=== PATIENT | female | born 1965 | race Two or more races ===

== ENCOUNTER 2020-03-27 08:31 | Day surgery (SDC) | payer MEDICAID ==
--- NOTE | 2020-03-23 15:30 | Pre-op HX & Phy Repo 2 SIG ---
DATE OF ADMISSION: 03/27/2020 Scheduled for outpatient surgery on March 27, 2020. HISTORY OF PRESENT ILLNESS: The patient is a 54-year-old female in overall stable health, who had recent breast imaging studies revealing in the left breast a 5 cm area of suspicious microcalcifications in the upper outer quadrant. 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 She has no prior history of breast disease and no family history of breast cancer. MEDICATIONS: Metformin. ALLERGIES: None. OPERATIONS: None. REVIEW OF SYSTEMS: 4, para 4. Last menstrual period 1 year ago. PHYSICAL EXAMINATION: VITAL SIGNS: The patient is with stable vital signs, 135 pounds. HEENT: Within normal limits. LUNGS: Clear. HEART: Regular rhythm. BREASTS: Moderate in size and ptotic. There is no palpable mass in either breast. No primary or secondary sign of tumor. No axillary or supraclavicular lymphadenopathy. ABDOMEN: Soft. PELVIC AND RECTAL: Per primary care. EXTREMITIES: Without edema. NEUROLOGIC: Physiologic. IMPRESSION: Ductal carcinoma in situ, left breast, upper outer quadrant, 5 cm area. PLAN: Left breast partial mastectomy with preoperative needle localization. DISCUSSION: I have had a full discussion with the patient regarding the nature of her condition, the need for surgery, indications, alternative options, and risks including bleeding, infection, scarring, distortion of the breast or nipple, need for additional treatments including possible additional surgery, radiation therapy, hormonal blockade or other treatments based on final pathology. The patient understands and agrees to proceed. Ryan Bleivns M.D. DR: AYAN JOB#: [id number] CC:
--- NOTE | 2020-03-24 12:14 | NUR ---
[employer] translation services used to obtained medical history with robotic weld technician Jahaira ID#[id number].
[~2020-03-27] VITALS: Ht 124.5 cm; Wt 61.2 kg
[2020-03-27] VITALS (10 sets, daily range): BP systolic 85–124; BP diastolic 48–74
[~2020-03-27 08:31] MED LIST: Bacitracin 50000 Units Vial ONE; METFORMIN HCL500 M1 ORAL
[2020-03-27] MEDS ORDERED: Lidocaine 1% MPF 10mg/ml 5ml ONE (08:34)
[2020-03-27] MEDS ORDERED: Ketorolac 30mg Inj ONE (08:34)
[2020-03-27] MEDS ORDERED: Midazolam 2mg/2ml Inj ONE (08:42)
[2020-03-27] MEDS ORDERED: fentaNYL 100 mcg/2 mL IV ONE (08:43)
--- NOTE | 2020-03-27 09:15 | Pre-Procedure Note/Attestation ---
Pre-Procedure Note/Attestation Complete Prior to Procedure Planned Procedure: left Procedure Narrative: left breast partial mastectomy with pre-operative needle localization Indications for Procedure Pre-Operative Diagnosis: Ductal Carcinoma in situ left breast Attestation I attest that I discussed the nature of the procedure; its benefits; risks and complications; and alternatives (and the risks and benefits of such alternatives), prior to the procedure, with the patient (or the patient's legal sales representative jewelry). I attest that, if there was a reasonable possibility of needing a blood transfusion, the patient (or the patient's legal sales representative jewelry) was given the [facility] standardized written summary, pursuant to the [place] Blood Safety Act ([place] Health and Safety Code # 1645, as amended). I attest that I re-evaluated the patient just prior to the surgery and that there has been no change in the patient's H&P, except as documented below: none Ryan Blevins MD Mar 27, 2020 09:15
[2020-03-27 09:17] LABS: BASOPHILS % (AUTO) 0.9 % (0.0-2.0); EOSINOPHILS % (AUTO) 5.2 % (0.0-3.0); HEMOGLOBIN 15.1 G/DL (12.0-16.0); LYMPHOCYTES % (AUTO) 19.5 % (20.0-45.0); MEAN CORPUSCULAR VOLUME 87 FL (80-99); MONOCYTES % (AUTO) 6.9 % (1.0-10.0); NEUTROPHILS % (AUTO) 67.4 % (45.0-75.0); PLATELET COUNT 129 K/UL (150-450); RED BLOOD COUNT 5.42 M/UL (4.20-5.40); RED CELL DISTRIBUTION WIDTH 14.4 % (11.6-14.8)
[2020-03-27] MEDS ORDERED: NS Irrig 1000ml IRRIG ONE ×2 (09:18→09:52)
[2020-03-27 09:27] LABS: INR 0.9 (0.9-1.1)
[2020-03-27] MEDS ORDERED: NS Irrig 1000ml ONE (09:30)
[2020-03-27] MEDS ORDERED: LR 1000ml ONE (09:30)
[2020-03-27] MEDS ORDERED: Insulin Human Regular 100units/ml 3ml SUBQ ONE ×2 (09:30→11:15)
[2020-03-27] MEDS ORDERED: Sterile Water Irrig 1000ml IRRIG ONE (09:30)
[2020-03-27 09:41] LABS: ANION GAP 8 mmol/L (5-15); BLOOD UREA NITROGEN 20 mg/dL (7-18); CALCIUM 9.1 MG/DL (8.5-10.1); CARBON DIOXIDE 24 MMOL/L (21-32); CHLORIDE 102 MMOL/L (98-107); CREATININE 0.8 MG/DL (0.55-1.30); POTASSIUM 4.4 MMOL/L (3.5-5.1); SODIUM 134 MMOL/L (136-145)
--- NOTE | 2020-03-27 10:26 | Anethesia Preoperative Eval ---
Anesthesia Pre-op PMH/ROS General Date of Evaluation: Mar 27, 2020 Time of Evaluation: 09:00 Anesthesiologist: Emmie ASA Score: ASA 3 Mallampati Score Class I : Soft palate, uvula, fauces, pillars visible Class II: Soft palate, uvula, fauces visible Class III: Soft palate, base of uvula visible Class IV: Only hard plate visible Mallampati Classification: Class II Surgeon: Gen Diagnosis: L breast CA Surgical Procedure: L partial mastectomy Anesthesia History: none Family History: no anesthesia problems Allergies: Coded Allergies: No Known Allergies (Unverified , 03/24/20) Medications: see eMAR Patient NPO?: Yes Past Medical History Cardiovascular: Denies: HTN, CAD, ID, valve dz, arrhythmia, other Pulmonary: Denies: asthma, COPD, JAMIL, other Gastrointestinal/Genitourinary: Reports: GERD; Denies: CRI, ESRD, other Neurologic/Psychiatric: Reports: depression/anxiety; Denies: dementia, CVA, TIA, other Endocrine: Reports: DM - on metformin, not controled BS at admission 377 6 units of reg. insulin given preoperatively; Denies: hypothyroidism, steroids, other HEENT: Denies: cataract (L), cataract (R), glaucoma, PALA (L), PALA (R), other Hematology/Immune: Denies: anemia, DVT, bleeding disorder, other Musculoskeletal/Integumentary: Denies: OA, RA, DJD, DDD, edema, other PMH Narrative: as above PSxH Narrative: see H&P Anesthesia Pre-op Phys. Exam Physician Exam Last Vital Signs Date Time Temp Pulse Resp B/P (MAP) Pulse Ox O2 Delivery O2 Flow Rate FiO2 03/27/20 08:55 Room Air 03/27/20 08:54 98.2 70 16 117/72 100 Constitutional: NAD Neurologic: CN 2-12 intact Cardiovascular: RRR, no M/R/G Respiratory: CTA Gastrointestinal: S/NT/ND Airway Exam Mallampati Score: Class II MO: full Neck: short ROM: limited Teeth: missing Dentures: no upper, no lower Anesthesia Pre-op A/P Labs Hematology Test 03/27/20 09:00 White Blood Count 8.0 K/UL (4.8-10.8) Red Blood Count 5.42 M/UL (4.20-5.40) H Hemoglobin 15.1 G/DL (12.0-16.0) Hematocrit 47.0 % (37.0-47.0) Mean Corpuscular Volume 87 FL (80-99) Mean Corpuscular Hemoglobin 27.8 PG (27.0-31.0) Mean Corpuscular Hemoglobin Concent 32.1 G/DL (32.0-36.0) Red Cell Distribution Width 14.4 % (11.6-14.8) Platelet Count 129 K/UL (150-450) L Mean Platelet Volume 8.7 FL (6.5-10.1) Neutrophils (%) (Auto) 67.4 % (45.0-75.0) Lymphocytes (%) (Auto) 19.5 % (20.0-45.0) L Monocytes (%) (Auto) 6.9 % (1.0-10.0) Eosinophils (%) (Auto) 5.2 % (0.0-3.0) H Basophils (%) (Auto) 0.9 % (0.0-2.0) Coagulation Test 03/27/20 09:00 Prothrombin Time 10.4 SEC (9.30-11.50) Prothromb Time International Ratio 0.9 (0.9-1.1) Activated Partial Thromboplast Time 25 SEC (23-33) Chemistry Test 03/27/20 09:00 03/27/20 09:03 03/27/20 09:05 Sodium Level 134 MMOL/L (136-145) L Potassium Level 4.4 MMOL/L (3.5-5.1) Chloride Level 102 MMOL/L (98-107) Carbon Dioxide Level 24 MMOL/L (21-32) Anion Gap 8 mmol/L (5-15) Blood Urea Nitrogen 20 mg/dL (7-18) H Creatinine 0.8 MG/DL (0.55-1.30) Estimat Glomerular Filtration Rate > 60 mL/min (>60) Glucose Level 319 MG/DL (74-106) H Calcium Level 9.1 MG/DL (8.5-10.1) POC Whole Blood Glucose 315 MG/DL (74-106) H Pending Studies Pre-op Studies: EKG - NSR Risk Assessment & Plan Assessment: ASA 3 Plan: GA with LMA Status Change Before Surgery: No Pre-Antibiotics Drug: Ancef 1gr Given Within 1 Hr of Incision: Yes Coleman Olea MD Mar 27, 2020 10:26
[2020-03-27] MEDS ORDERED: DiphenhydrAMINE 50mg/ml Inj IVP PRN (10:30)
[2020-03-27] MEDS ORDERED: Meperidine 25mg/1ml Inj (FOR RIGORS ONLY) IV PRN (10:30)
[2020-03-27] MEDS ORDERED: LR 1000ml 1,000 ML IVLG SCH (10:30)
--- NOTE | 2020-03-27 10:53 | Brief Operative Note ---
Immediate Post Operative Note Operative Note Pre-op Diagnosis: Ductal Carcinoma in situ left breast Procedure: left breast partial mastectomy with pre-operative bracketing needle localization Post-op Diagnosis: same Post-op Diagnosis: same as pre-op Findings: consistent w/pre-op dx studies Surgeon: hermilo Anesthesiologist: william Anesthesia: general Specimen: yes - left breast partial mastectomy Complications: none Condition: stable Fluids: see anesthesia record Estimated Blood Loss: minimal Drains: none Implant(s) used?: No Ryan Blevins MD Mar 27, 2020 10:53
[2020-03-27] MEDS ORDERED: Tylenol #3 tab (300mg/30mg) ORAL PRN (11:00)
[2020-03-27] MEDS ORDERED: HYDROcodone/Acetamin 5/325 tab ORAL PRN (11:00)
[2020-03-27] MEDS ORDERED: HYDROmorphone 1mg/ml Carpuject SUBQ PRN (11:00)
--- NOTE | 2020-03-27 11:07 | Immediate Post-Op Evaluation ---
Immediate Post-Op Evalulation Immediate Post-Op Evalulation Procedure: L breast partial mastectomy Date of Evaluation: Mar 27, 2020 Time of Evaluation: 11:06 IV Fluids: 1000 Blood Products: none Estimated Blood Loss: min Urinary Output: none Blood Pressure Systolic: 97 Blood Pressure Diastolic: 56 Pulse Rate: 74 Respiratory Rate: 20 O2 Sat by Pulse Oximetry: 99 Temperature (Fahrenheit): 97.6 Pain Score (1-10): 1 Nausea: No Vomiting: No Complications none Patient Status: reacts, patent, none Hydration Status: adequate Coleman Olea MD Mar 27, 2020 11:07
--- NOTE | 2020-03-27 12:04 | 48 Hour Post Anesthesia Eval ---
Post Anesthesia Evaluation Procedure: L breast partial mastectomy Date of Evaluation: Mar 27, 2020 Time of Evaluation: 12:02 Blood Pressure Systolic: 109 0: 66 Pulse Rate: 72 Respiratory Rate: 20 Temperature (Fahrenheit): 97.6 O2 Sat by Pulse Oximetry: 98 Airway: patent Nausea: No Vomiting: No Pain Intensity: 1 Hydration Status: adequate Cardiopulmonary Status: stable Mental Status/LOC: patient returned to baseline Follow-up Care/Observations: n/a Post-Anesthesia Complications: none Follow-up care needed: ready to discharge Coleman Olea MD Mar 27, 2020 12:04
--- NOTE | 2020-03-27 13:00 | Operative Note - Dictated ---
DATE OF OPERATION: 03/27/2020 SURGEON: Ryan Blevins MD. BUSINESS DEPARTMENT CHAIR: None. ANESTHESIOLOGIST: Coleman Olea MD. TYPE OF ANESTHESIA: General. PREOPERATIVE DIAGNOSIS: Ductal carcinoma in situ, left breast, 5 cm span. POSTOPERATIVE DIAGNOSIS: Ductal carcinoma in situ, left breast, 5 cm span. OPERATION PERFORMED: Left breast partial mastectomy with preoperative bracketing needle localization. DESCRIPTION OF PROCEDURE: The patient was taken to the operating room and under general anesthesia with sequential compression device stockings in place, she was prepped and draped in usual fashion. A curvilinear incision was made in the upper outer quadrant of the left breast and flaps dissected circumferentially until both wires could be brought into the field. Then, the entire quadrant was resected down to the chest wall orienting the specimen with sutures placed anterior, superior, and medial. Hemostasis was carefully achieved with cautery. Specimen radiograph confirmed the presence of all of the calcifications. The field was irrigated with sterile water followed by antibiotic solution and hemostasis carefully achieved with cautery. The incision was closed with interrupted 2-0 Vicryl deep dermal subcutaneous sutures followed by continuous 4-0 Monocryl subcuticular suture. Mastisol and half-inch Steri-Strips were applied followed by dry sterile dressing. Final sponge and needle counts were correct. The patient tolerated the procedure well and left the operating room in good condition. Ryan Blevins M.D. DR: ARABELLA JOB#: [id number] CC:
[2020-03-27] MEDS ORDERED: D5 1/2NS 1,000 ML IV SCH (14:00)
== END 2020-03-27 13:55 | disposition home or self-care (01) ==
LOC: SUR 08:31
DX: D05.12 Intraductal carcinoma in situ of left breast (principal); K21.9 Gastro-esophageal reflux disease without esophagitis; F32.9 Major depressive disorder, single episode, unspecified; F41.9 Anxiety disorder, unspecified; E11.9 Type 2 diabetes mellitus without complications; Z79.84 Long term (current) use of oral hypoglycemic drugs
CPT/HCPCS: 19301; 36415; 80048; 82962; 85025; 85610; 85730; 93005; 94003; J0690; J1815; J1885; J2250; J2704; J3010; J7120; U0002; Z7512; 94150; J2180